=== PATIENT | male | born 1990 | race Hispanic/Latino ===

== ENCOUNTER 2017-06-21 16:27 | Emergency (ER) | payer BC ==
[2017-06-21 16:38] VITALS: BP 164/71; PULSE 60; RESP 16; TEMP 97.9; O2SAT 99
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
== END 2017-06-21 18:15 | disposition home or self-care (01) ==
LOC: H.ER 16:27
DX: S61.011A Laceration without foreign body of right thumb without damage to nail, initial encounter (principal); W26.0XXA Contact with knife, initial encounter; Y92.89 Other specified places as the place of occurrence of the external cause

== ENCOUNTER 2018-10-30 02:46 | Emergency (ER) | payer BC ==
[2018-10-30 02:59] VITALS: O2SAT 98
[2018-10-30] MEDS ORDERED: Tdap Vaccine 0.5 ml Vial (10-64 yrs) IM ONE (03:00)
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
[2018-10-30 07:03] VITALS: BP 117/51; PULSE 81; RESP 19; TEMP 97.7
--- NOTE | 2018-10-30 16:19 | CT ---
Date of service: 10/30/2018 PROCEDURE: CT HEAD WITHOUT CONTRAST. HISTORY: s/p fall, posterior head lac COMPARISON: None available. TECHNIQUE: Axial computed tomography images were obtained through the head/brain without intravenous contrast. Radiation dose: Total exam DLP = 942.09 mGy-cm. This CT exam was performed using one or more of the following dose reduction techniques: Automated exposure control, adjustment of the mA and/or kV according to patient size, and/or use of iterative reconstruction technique. FINDINGS: HEMORRHAGE: No intracranial hemorrhage. BRAIN: Normal donnelly-white matter differentiation and density are appreciated throughout the cerebrum and cerebellum with the brainstem appearing unremarkable as well. There is no mass effect. There is no suspicious extra-axial fluid collection and the midline brain anatomy appears diffusely unremarkable. VENTRICLES: Unremarkable. No hydrocephalus. CALVARIUM: No destructive bony lesion or displaced fracture identified including through the skullbase. Note is made of a moderate-sized right parietalvertex scalp mhematoma. PARANASAL SINUSES: Unremarkable as visualized. No significant inflammatory changes. MASTOID AIR CELLS: Unremarkable as visualized. No inflammatory changes. OTHER FINDINGS: None. IMPRESSION: No acute intracranial findings or fracture identified. Right parietal vertex scalp hematoma identified. Concordant preliminary report from [facility], 10/30/2018 4:05 a.m..
== END 2018-10-30 08:55 | disposition home or self-care (01) ==
LOC: H.ER 02:46
DX: F10.129 Alcohol abuse with intoxication, unspecified (principal); S01.01XA Laceration without foreign body of scalp, initial encounter; S09.90XA Unspecified injury of head, initial encounter; Y04.0XXA Assault by unarmed brawl or fight, initial encounter; Y92.89 Other specified places as the place of occurrence of the external cause
CPT/HCPCS: 12001; 70450; 82948; 99285; G0480